=== PATIENT | female | born 1970 | race Caucasian/White ===

== ENCOUNTER 2022-06-04 12:25 | Emergency (ER) | payer MEDICAID, SELFPAY ==
[2022-06-04 12:27] VITALS: BP 121/80; PULSE 77; RESP 16; TEMP 36.7; O2SAT 98; BMI 27.1
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
[2022-06-04 12:47] VITALS: BP 121/80; PULSE 80; RESP 16; O2SAT 100
[2022-06-04 12:53] LABS: Absolute Lymphocyte Count 2.22 X10^3/uL (0.83-4.51); Absolute Neutrophil Count 1.9 X10^3/uL (2.0-7.7); Basophil# 0.06 X10^3/uL; Basophil% 1.3 % (0-1); Eosinophils% 2.2 % (0-5); Hematocrit 36.2 % (37-47); Hemoglobin 11.1 g/dL (12.0-15.0); Lymphocyte # 2.22 X10^3/ul (0.83-4.51); Lymphocyte % 49.6 % (19-41); Mean Corp Hgb Conc 30.7 g/dL (32-36); Mean Corpuscular Hgb 24.1 pg (27.0-32.0); Mean Corpuscular Volume 78.5 fL (81-99); Monocyte# 0.24 X10^3/uL; Monocyte% 5.4 % (0-10); NRBC Flagged by Analyzer 0 % (0-5); Neutrophil # 1.85 X10^3/uL (2.7-7.7); Neutrophil % 41.3 % (47-70); Platelet Count 380 K/mm3 (150-450); RBC Distribution Width CV 19.3 % (11.6-14.6); RBC Distribution Width SD 55.1 fl (35.1-43.9); Red Blood Count 4.61 M/mm3 (4.2-5.4); White Blood Count 4.5 K/mm3 (4.4-11.0)
[2022-06-04 13:13] LABS: ALB/GLOB Ratio 0.9 RATIO (0.9-2.4); AST(SGOT) 19 U/L (15-37); Alanine Aminotransfer ALT/SGPT 27 U/L (13-56); Albumin, Serum 3.8 g/dL (3.2-5.0); Alkaline Phosphatase 76 U/L (45-117); Anion Gap 4 (5-15); BUN 17 mg/dL (7-18); BUN/Creat Ratio 19.1 RATIO (10-20); Chloride 110 mmol/L (98-107); Creatinine, Serum 0.89 mg/dL (0.55-1.02); EST Glomerular Filtration Rate 71 mL/min (>60); Est Glom Filt Rate - Afr Amer 86 mL/min (>60); Estimated Creatinine Clearance 91.73 ml/min; Globulin 4.2 g/dL (2.2-4.2); Glucose 93 mg/dL (74-106); Potassium 3.9 mmol/L (3.5-5.1); Sodium Level 145 mmol/L (136-145)
[2022-06-04 13:18] LABS: Internal QC Validated? YES +Cl - CLEAR BKGD; Pregnancy, Serum, hCG Quali. NEGATIVE Negative
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
[2022-06-04 13:43] LABS: Bacteria 0 SEEN /hpf (None Seen); Mucous, Urine 0 SEEN /hpf (<or=2+); Red Blood Cells-Urine 0 SEEN /hpf (0-5); White Blood Cells 0 SEEN /hpf (0-5)
[2022-06-04 13:49] LABS: Color, Urine Straw (Yellow); Glucose, Dipstick Normal (Normal); Ketone-Dipstick Negative (Negative); Leukocyte Esterase-Dipstick Negative /ul (Negative); Nitrite-Dipstick Negative (Negative); Occult Blood-Urine Negative /ul (Negative); Protein-Dipstick Negative (Negative); Urine Bilirubin Dipstick Negative (Negative); Urine Clarity Clear (Clear); Urine Urobilinogen Normal (Normal)
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
[2022-06-04 14:03] LABS: Squamous Epithelial Cells - UA 0-5 SEEN /hpf (5-10)
[2022-06-04 14:19] LABS: Amphetamine Urine VISTA NEGATIVE (<1000 ng/mL); Barbiturate Urine VISTA NEGATIVE (< 200 ng/mL); Benzodiazepine Urine VISTA NEGATIVE (< 200 ng/mL); Cocaine Urine VISTA NEGATIVE (< 300 ng/mL); Ecstacy Urine VISTA NEGATIVE (< 500 ng/mL); Methadone Urine VISTA NEGATIVE (< 300 ng/mL); PCP Urine VISTA NEGATIVE (< 25 ng/mL); THC Urine VISTA NEGATIVE (< 50 ng/mL); Vista UDS pH Range 7
[2022-06-04 14:50] VITALS: BP 111/59; PULSE 94; RESP 16; O2SAT 96
--- NOTE | 2022-06-04 17:27 | ED.RN ---
Patient agitated. Requesting to leave. Dr. Douglass notified. Patient has a family member coming to provide a ride home.
--- NOTE | 2022-06-04 18:27 | ED.RN ---
pt daughter called to check on the patient. informed pt sleeping, daughter reports she will call back.
--- NOTE | 2022-06-04 20:00 | ED.RN ---
Patient's daughter not able to secure a ride home for patient. Dr. Douglass notified and states he is okay if patient takes a cab home. Patient ambulatory to exit to wait for cab. ETA [id number].
== END 2022-06-04 20:03 | disposition home or self-care (01) ==
PROVIDERS: Emergency Provider Emergency Medicine; PCP Family Medicine; Visit Provider Emergency Medicine
DX: G45.4 Transient global amnesia (principal); F10.229 Alcohol dependence with intoxication, unspecified; F31.9 Bipolar disorder, unspecified; D50.9 Iron deficiency anemia, unspecified; Z20.822 Contact with and (suspected) exposure to COVID-19
CPT/HCPCS: 70450; 80053; 80076; 80307; 81001; 82077; 84703; 85025; 87811; 99285; A4216